=== PATIENT | male | born 1945 | race African-American/Black ===

== ENCOUNTER 2019-03-08 19:56 | Emergency (ER) | payer MEDICARE, MEDICAID ==
[~2019-03-08] VITALS: Ht 177.8 cm; Wt 90.0 kg
[~2019-03-08 19:56] MED LIST: AMLO1TAB12 PO; ASPIRIN
[2019-03-08] MEDS ORDERED: ONDANSETRON HCL 4MG/2ML INJ IV STA (20:47)
[2019-03-08] MEDS ORDERED: SODIUM CHLORIDE 0.9% 1,000 ML IV ONE (20:47)
[2019-03-08] MEDS ORDERED: MORPHINE SULFATE 4 MG/ML CPJ (NOT FOR IM USE) IV STA (20:47)
[2019-03-08 21:04] LABS: CLARITY URINE CLEAR (CLEAR); COLOR URINE YELLOW (YELLOW); KETONES URINE NEGATIVE (NEGATIVE); LEUKOCYTE ESTERASE URINE NEGATIVE (NEGATIVE); NITRITE URINE NEGATIVE (NEGATIVE); OCCULT BLOOD URINE NEGATIVE (NEGATIVE); PH URINE 5.5 (4.5-8.0); PROTEIN URINE NEGATIVE (NEGATIVE); SPECIFIC GRAVITY URINE 1.016 (1.005-1.030)
[2019-03-08 21:40] LABS: EOSINOPHILS % 2.2 % (0.0-5.0); HEMATOCRIT. 35.5 % (42.0-52.0); LYMPHOCYTES % 48.4 % (20.0-50.0); MEAN CORPUSCULAR VOLUME 103.7 fL (80.0-94.0); MEAN PLATELET VOLUME 8.2 fl (7.4-10.4); MONOCYTES % 10.8 % (2.0-8.0); NEUTROPHILS % 35.6 % (40.0-76.0); PLATELET 195 x1000/uL (130-400); RED BLOOD CELL COUNT 3.42 mill/uL (4.7-6.1); RED CELL DISTRIBUTION WIDTH 13.7 % (11.6-14.6)
[2019-03-08 21:41] LABS: CHLORIDE 113 mEq/L (98-107)
[2019-03-08 21:43] LABS: INR 1.1; PROTHROMBIN TIME 11.7 sec (9.6-11.0)
[2019-03-09 02:19] VITALS: BP 117/56
== END 2019-03-09 02:19 | disposition home or self-care (01) ==
LOC: ER 19:56
DX: K42.9 Umbilical hernia without obstruction or gangrene (principal); I10 Essential (primary) hypertension
CPT/HCPCS: 36415; 74176; 80053; 81003; 83690; 84484; 85025; 85610; 93005; 96374; 96375; 99284; J2270; J2405; J7030

== ENCOUNTER 2019-06-01 09:01 | Day surgery (SDC) | payer MEDICARE, MEDICAID ==
[~2019-06-01] VITALS: Ht 175.3 cm; Wt 89.4 kg
[2019-06-01] MEDS ORDERED: LACTATED RINGERS 1,000 ML IV SCH (10:00)
[2019-06-01] MEDS ORDERED: SKIN ADHESIVE 0.7 GM EA TOP ONE (10:08)
[2019-06-01] MEDS ORDERED: BUPIVACAINE HCL 0.5% (5MG/ML) 50ML ONE (10:08)
[2019-06-01] MEDS ORDERED: LIDOCAINE HCL/PF 1% 10 MG/ML 5ML VIAL ONE (11:02)
[2019-06-01] MEDS ORDERED: PROPOFOL 200MG/20ML VIAL IV ONE ×2 (11:02→12:19)
[2019-06-01] MEDS ORDERED: MIDAZOLAM HCL 2 MG/2 ML VIAL ONE (11:02)
[2019-06-01] MEDS ORDERED: GLYCOPYRROLATE 0.2 MG/ML 2ML VIAL ONE ×2 (11:02→12:45)
[2019-06-01] MEDS ORDERED: CEFAZOLIN SODIUM 1000MG/VIAL ONE (11:02)
[2019-06-01] MEDS ORDERED: SODIUM CHLORIDE 0.9% 10ML VIAL ONE (11:02)
[2019-06-01] MEDS ORDERED: SUCCINYLCHOLINE CHLORIDE 200MG/10ML IV ONE (11:02)
[2019-06-01] MEDS ORDERED: FENTANYL CITRATE/PF 50MCG/ML 2ML VIAL ONE ×3 (11:02→12:18)
[2019-06-01] MEDS ORDERED: ROCURONIUM BROMIDE 10MG/ML VIAL 5ML IV ONE ×2 (11:02→12:18)
[2019-06-01] MEDS ORDERED: NEOSTIGMINE METHYLSULFATE 1MG/ML 10 ML VIAL ONE (11:02)
[2019-06-01] MEDS ORDERED: EPHEDRINE SULFATE 50MG/ML VIAL ONE (11:03)
[2019-06-01] MEDS ORDERED: METOCLOPRAMIDE HCL 10MG/2ML VIAL ONE (11:03)
[2019-06-01] MEDS ORDERED: PHENYLEPHRINE HCL 10 MG/ML 1ML (IV VIAL) IV ONE (11:03)
[2019-06-01] MEDS ORDERED: ONDANSETRON HCL 4MG/2ML INJ ONE (11:03)
[2019-06-01] MEDS ORDERED: TAMS-11 PO (11:49)
[2019-06-01] MEDS ORDERED: AMLO5TAB88 PO (11:49)
[2019-06-01] MEDS ORDERED: HYDR-3281 PO (11:49)
[2019-06-01] MEDS ORDERED: SODIUM CHLORIDE 0.9% 1,000 ML IV ONE (13:02)
[2019-06-01] MEDS ORDERED: MORPHINE SULFATE 2 MG/ML CPJ (NOT FOR IM USE) IV PRN (13:15)
[2019-06-01] MEDS ORDERED: ONDANSETRON HCL 4MG/2ML INJ IV PRN (13:15)
[2019-06-01] MEDS ORDERED: MEPERIDINE HCL/PF 25MG/ML CPJ IV PRN ×2 (13:15)
[2019-06-01] MEDS ORDERED: HYDROMORPHONE HCL/PF 2MG/ML CPJ IV PRN (13:15)
[2019-06-01 16:16] VITALS: BP 120/82
== END 2019-06-01 18:00 | disposition home or self-care (01) ==
LOC: OR 09:01
PROVIDERS: ATTEND Surgery
DX: K42.9 Umbilical hernia without obstruction or gangrene (principal); I10 Essential (primary) hypertension; N40.0 Benign prostatic hyperplasia without lower urinary tract symptoms; B18.2 Chronic viral hepatitis C; M17.9 Osteoarthritis of knee, unspecified; E78.2 Mixed hyperlipidemia; E66.9 Obesity, unspecified; F11.20 Opioid dependence, uncomplicated; J44.9 Chronic obstructive pulmonary disease, unspecified; Z68.30 Body mass index [BMI] 30.0-30.9, adult; Z98.890 Other specified postprocedural states; Z72.0 Tobacco use; Z79.899 Other long term (current) drug therapy; Z82.49 Family history of ischemic heart disease and other diseases of the circulatory system
CPT/HCPCS: 49652; C1781; J0330; J0690; J2175; J2250; J2370; J2405; J2704; J2710; J2765; J3010; J3490